=== PATIENT | male | born 2000 | race Caucasian/White ===

== ENCOUNTER 2018-03-20 18:10 | Observation (INO) | payer BC, MEDICAID ==
[~2018-03-20] VITALS: Ht 176.5 cm; Wt 58.8 kg
[~2018-03-20 18:10] MED LIST: HYDR50TA13 PO; QUET100T4 PO; QUET300T5 PO
[2018-03-20 19:20] LABS: AMPHETAMINE SCREEN, URINE Positive (Negative); BARBITURATE SCREEN, URINE Negative (Negative); BENZODIAZEPINE SCREEN, URINE Negative (Negative); CANNABINOID SCREEN, URINE Negative (Negative); COCAINE SCREEN, URINE Negative (Negative); METHADONE SCREEN, URINE Negative (Negative); OPIATE SCREEN, URINE Negative (Negative)
[2018-03-20] MEDS ORDERED: METH10TA4 PO (19:25)
[2018-03-20] MEDS ORDERED: TRAZ100T15 PO (19:25)
[2018-03-20 19:36] LABS: BASOPHILS # (AUTO) 0.04 x10^3/uL (0-0.3); BASOPHILS % (AUTO) 1 % (0-1); EOSINOPHILS # (AUTO) 0.16 x10^3/uL (0-0.8); EOSINOPHILS % (AUTO) 2 % (1-7); LYMPHOCYTES # (AUTO) 1.48 x10^3/uL (1-6.1); LYMPHOCYTES % (AUTO) 16 % (22-44); MD NO; MEAN CORPUSCULAR HEMOGLOBIN 31.1 pg (27.5-34.5); MEAN CORPUSCULAR VOLUME 91.5 fL (81-97); MEAN PLATELET VOLUME 8.1 fL (7.4-10.4); MONOCYTES # (AUTO) 0.46 x10^3/uL (0-1.4); MONOCYTES % (AUTO) 5 % (2-9); NEUTROPHILS # (AUTO) 6.88 x10^3/uL (1.8-8.0); NEUTROPHILS % (AUTO) 76 % (42-75); PLATELET COUNT 263 x10^3/uL (130-400); RED BLOOD COUNT 5.04 x10^6/uL (4.38-5.82); RED CELL DISTRIBUTION WIDTH 13.1 % (9.4-14.8)
[2018-03-20] MEDS ORDERED: LAMO100T6 PO (19:37)
[2018-03-20 19:46] LABS: ALANINE AMINOTRANSFERASE 22 U/L (12-78); ALBUMIN 4.3 g/dL (3.4-5.0); ANION GAP 6 mmol/L (5-15); CALCIUM 8.7 mg/dL (8.5-10.1); CHLORIDE 107 mmol/L (98-107); CREATININE 0.89 mg/dL (0.7-1.3); SALICYLATE LEVEL 2.2 mg/dL (2.8-20.0)
[2018-03-20 19:47] LABS: ACETAMINOPHEN < 2 mcg/mL (10-30)
[2018-03-20 19:48] LABS: ALKALINE PHOSPHATASE 78 U/L (45-117); BILIRUBIN,TOTAL 0.3 mg/dL (0.2-1.0); TOTAL PROTEIN 7.3 g/dL (6.4-8.2)
[2018-03-20] MEDS ORDERED: LORazepam 1MG TABLET ONE (22:20)
[2018-03-20] MEDS ORDERED: LORazepam 1MG TABLET PO ONE (22:30)
[2018-03-20] MEDS ORDERED: ACETAMINOPHEN 325 MG TABLET PO PRN (23:00)
[2018-03-20] MEDS ORDERED: BUPIVACAINE/PF 0.5% ONE (23:12)
[2018-03-20] MEDS ORDERED: LIDOCAINE-MPF 1%, 2ML ONE (23:12)
[2018-03-21] MEDS ORDERED: NICOTINE 21 MG/24 HR PATCH.TD24 ONE (09:50)
[2018-03-21] MEDS: NICOTINE 21 MG/24 HR PATCH.TD24 TD SCH (10:00)
[2018-03-21] MEDS ORDERED: ACETAMINOPHEN 325 MG TABLET ONE (12:39)
[2018-03-21 16:08] VITALS: BP 137/82
[2018-03-21] MEDS: LORazepam 1MG TABLET PO PRN (17:38)
[2018-03-21 19:49] VITALS: BP 106/68
[2018-03-21] MEDS: ZOLPIDEM 5MG TABLET PO PRN (20:53)
[2018-03-22 07:55] VITALS: BP 104/71
[2018-03-22] MEDS: NICOTINE 21 MG/24 HR PATCH.TD24 TD SCH (08:05)
[2018-03-22] MEDS: LORazepam 1MG TABLET PO PRN ×2 (08:05→17:29)
[2018-03-22 19:30] VITALS: BP 105/66
[2018-03-22] MEDS: ZOLPIDEM 5MG TABLET PO PRN (21:40)
[2018-03-23 07:30] VITALS: BP 110/67
[2018-03-23] MEDS: NICOTINE 21 MG/24 HR PATCH.TD24 TD SCH (08:01)
[2018-03-23] MEDS: LORazepam 1MG TABLET PO PRN (11:06)
== END 2018-03-23 13:50 ==
LOC: ED 19:16 → EDIP 20:53 → 3E 03-21 15:57
PROVIDERS: ADMIT Hospitalist; ATTEND Hospitalist
DX: T71.162A Asphyxiation due to hanging, intentional self-harm, initial encounter (principal); F33.2 Major depressive disorder, recurrent severe without psychotic features; F17.210 Nicotine dependence, cigarettes, uncomplicated; F60.3 Borderline personality disorder; Z91.5 Personal history of self-harm
CPT/HCPCS: 36415; 72125; 80053; 80307; 80329; 85025; 99285; G0378; G0480